=== PATIENT | female | born 1945 | race Caucasian/White ===

== ENCOUNTER 2018-04-25 14:15 | Emergency (ER) | payer OTHER ==
[~2018-04-25] VITALS: Ht 157.5 cm; Wt 46.7 kg
[~2018-04-25 14:15] MED LIST: ADVIL; ALBU90OI61 INH; ALEN70 PO; Duoneb 2.5-0.5 M3 ML INH; IBUP400 PO; LOVA40 PO; PRED10 PO; PROP60 PO; Percocet 5-3251 EACH PO; Prednisone20 MG PO; TOBRADEX ST EYE5 ML OP; Zithromax250 MG PO; Zofran Odt4 MG PO
[2018-04-25 16:30] LABS: Chloride (POC) 101 mmol/L (98-108); Creatinine (POC) 0.9 mg/dL (0.6-1.0); Glucose (ISTAT POC) 140 mg/dL (70-99); Hemoglobin (POC) 14.3 g/dL (12.0-16.0); Potassium (POC) 3.6 mmol/L (3.5-5.5); Sodium (POC) 145 mmol/L (135-148); Total CO2 (POC) 28 mmol/L (21-32)
== END 2018-04-25 17:48 | disposition home or self-care (01) ==
LOC: ER 14:15
PROVIDERS: Physician Assistant
DX: L03.213 Periorbital cellulitis (principal); J44.9 Chronic obstructive pulmonary disease, unspecified; F17.210 Nicotine dependence, cigarettes, uncomplicated; Z79.899 Other long term (current) drug therapy
CPT/HCPCS: 36415; 70481; 80047; 85014; 99283-25; Q9967

== ENCOUNTER 2018-05-07 15:56 | Inpatient (IN) | payer OTHER ==
[~2018-05-07] VITALS: Ht 157.5 cm; Wt 45.5 kg
[2018-05-07 16:48] LABS: BASOPHILS ABSOLUTE AUTO 0.07 K/mm3 (0.00-0.23); BASOPHILS PERCENT AUTO 1 % (0-2); EOSINOPHILS ABSOLUTE AUTO 0.25 K/mm3 (0.00-0.68); EOSINOPHILS PERCENT AUTO 3 % (0-6); Hematocrit 47.3 % (33.0-51.0); Hemoglobin 14.8 g/dL (11.5-16.0); IMMATURE GRAN ABSOLUTE AUTO 0.08 K/mm3 (0.00-0.10); IMMATURE GRAN PERCENT AUTO 1 % (0-1); LYMPHOCYTES ABSOLUTE AUTO 2.22 K/mm3 (0.84-5.20); LYMPHOCYTES PERCENT AUTO 24 % (21-46); MONOCYTES ABSOLUTE AUTO 0.88 K/mm3 (0.16-1.47); MONOCYTES PERCENT AUTO 10 % (4-13); Mean Corpuscular HGB Conc 31.3 g/dL (31.5-36.5); Mean Corpuscular Volume 89 fL (80-100); Mean Platelet Volume 9.7 fL (9.1-12.4); NEUTROPHILS ABSOLUTE AUTO 5.71 K/mm3 (1.96-9.15); NEUTROPHILS PERCENT AUTO 62 % (41-73); Platelet Count 214 K/mm3 (150-400); RDW Coefficient Variation 13.3 % (11.7-14.2); RDW Standard Deviation 43.5 fL (35.1-46.3); Red Blood Cell Count 5.29 M/mm3 (3.80-5.20); White Blood Cell Count 9.21 K/mm3 (4.00-11.30)
[2018-05-07 17:09] LABS: Alanine Aminotransfer (ALT/SGP 18 U/L (12-78); Albumin, Blood 3.2 g/dL (3.4-5.0); Albumin/Globulin Ratio 0.9 (0.8-1.8); Alk Phos 74 U/L (50-136); Anion Gap 6 mmol/L (6-16); Aspartate Aminotrans (AST/SGOT 16 U/L (12-37); Bilirubin, Total 0.3 mg/dL (0.1-1.0); Blood Urea Nitrogen 15 mg/dL (8-24); Bun/Creatinine Ratio 15.9 (12.0-20.0); CO2, Blood 28 mmol/L (21-32); Calcium, Blood 8.2 mg/dL (8.5-10.1); Chloride, Blood 106 mmol/L (98-108); Creatinine, Blood 0.95 mg/dL (0.40-1.00); Globulin, Blood 3.5 g/dL (2.2-4.0); Glomerular Filtration Rate >60 (60-); Glucose, Blood 133 mg/dL (70-99); Potassium, Blood 4.1 mmol/L (3.5-5.5); Sodium, Blood 140 mmol/L (136-145); Total Protein, Blood 6.7 g/dL (6.4-8.2)
[2018-05-07] MEDS ORDERED: Symbicort 16010.2 GM INH (22:53)
[2018-05-07] MEDS ORDERED: TIOT18 INH (22:54)
[2018-05-08 04:18] LABS: Hemoglobin 13.2 g/dL (11.5-16.0); Mean Corpuscular HGB Conc 30.7 g/dL (31.5-36.5); Mean Corpuscular Volume 91 fL (80-100); Mean Platelet Volume 9.6 fL (9.1-12.4); Platelet Count 182 K/mm3 (150-400); RDW Coefficient Variation 13.2 % (11.7-14.2); RDW Standard Deviation 44.4 fL (35.1-46.3); Red Blood Cell Count 4.72 M/mm3 (3.80-5.20); White Blood Cell Count 9.35 K/mm3 (4.00-11.30)
[2018-05-08 04:33] LABS: Bun/Creatinine Ratio 14.5 (12.0-20.0); Calcium, Blood 7.6 mg/dL (8.5-10.1); Creatinine, Blood 0.97 mg/dL (0.40-1.00); Potassium, Blood 4.2 mmol/L (3.5-5.5)
--- NOTE | 2018-05-08 06:08 | NUR ---
SHIFT SUMMARY: PATIENT ARRIVED TO ROOM PCU7 VIA GURNEY FROM ER. PATIENT ABLE TO AMBULATE WITH NO DIFFICULTY, ALERT AND ORIENTED AND COMPLIANT WITH CARE. ADMISSION AND ASSESSMENT COMPLETED, PATIENT ORIENTED TO CALL LIGHT, ROOM AND HOSPITAL POLICIES. PATIENT LEFT ARM IS POSITIONAL FOR BLOOD PRESSURES AND OFTEN READS APPROX 20 POINTS LOWER THAN RIGHT ARM. NO SOLU MEDROL HAS BEEN GIVEN PATIENT IS ALLERGIC TO STEROIDS AND UNSURE OF WHICH STEROID, MD IS AWARE AND HOPING FOR CLARIFICATION FROM PATIENTS FAMILY. ALL OTHER VSS, CALL LIGHT WITHIN REACH AND BED LOW AND LOCKED.
--- NOTE | 2018-05-08 13:09 | NUR ---
AM NOTE REFERRREL TO DR PALUMBO CALLED. PT AGREEABLE TO SEEING HIM. TALKED WITH DR PALUMBO ON THE PHONE. HE REQUESTED PEPECID, PREDNISONE AND BENADRYL TO BE GIVEN TO PT. CALLED Starla CUI FOR ORDERS. DR PALUMBO WAS HERE SHORTLY THEREAFTER. DR CUI ORDERED VANCOMYCIN. REQUESTED A POWER GLIDE BE PLACED PRIOR TO ADMINISTRATION. PT RECEIVED A POWER GLIDE TO EHR RIGHT UE. TOLERATED WELL. IVF FINISHED X1. ORDERED KVO FLUIDS PER PROTOCOL FOR ANTIBIOTIC ADMINISTRATION. PT CURRENTLY WATCHING FOOTBALL WITH HER NEIGHBOR. EYES LESS RED AND SWOLLEN. PT REPORTS LESS ITCHY WELL. UCAN REPLACED THE INSULATION IN HER CEILING AT THE BEGINNING OF THE MONTH ALONG WITH SOME WINDOW REPLACEMENT WELL. THE SWELLING STARTED SHORTLY THEREAFTER. CONTINUE POT.
--- NOTE | 2018-05-09 06:28 | NUR ---
SHIFT SUMMARY- PT HAS REMAINED AOX4 THROUGHOUT SHIFT. VSS. PLEASANT AND COOPERATIVE WITH CARE. PT CONTINUES TO HAVE SOME REDNESS AND SWELLING AROUND BILATERAL EYES, BUT HAS SIGNIFICANTLY DECREASED THROUGHOUT THIS SHIFT, REDNESS HAS ALMOST COMPLETELY DISSIPATED. SKIN HAS BECOME SOMEWHAT WRINKLY, DRY AND CRACKED AROUND EYES. PT REPORTS THAT THEY FEEL MUCH BETTER, BUT THAT THEY ARE ITCHY. PT EDUCATED ON HEALING PROCESS AND ADVISED NOT TO SCRATCH OR RUB EYES, BUT RATHER TO UTILIZE COOL WASH RAG AND GENTLY PAT AROUND EYE AREA TO HELP WITH ITCHINESS. NO OTHER CHANGES NOTED FROM INITIAL ASSESSMENT. WILL CONTINUE TO MONITOR AND REPORT TO ONCOMING RN. BED IN LOW POSITION, CALL LIGHT IN REACH. BED ALARM SET FOR SAFETY.
--- NOTE | 2018-05-09 10:31 | NUR ---
CITLALY TALKED WITH PT AND DR CUI. PT OK'D THIS NURSE CALLING CITLALY ABOUT HER ALLERGIC RECTION TO THE CONSTRUCTION WORK THAT CITLALY SPONSORED BEING DONE IN HER HOME ON April. MESSAGE LEFT AT [phone]. THIS NURSE TALKED WITH COMPUTER NUMERICAL CONTROL GRINDER TOO. TODAY IS A HOLIDAY. NOT SURE IF CITLALY OBSERVES THE HOLIDAY OR NOT. CONTINUE POT.
--- NOTE | 2018-05-09 12:51 | NUR ---
TRANSFER TO [facility] NOTOFOED OF ROOM ASSIGNMENT. WENT TO LET PT KNOW. SHE JUMPED OUT OF BED AND TRIED TO SLAP THIS NURSE WHILE SCREAMING "YOU HAVEN'T FIXED ME". RETREATED UNTIL SHE CALMED DOWN. WENT BACK IN AND TALKED WITH HER AGAIN ABOUT THE TRANSFER. PT THEN AGREEABLE TO THE MOVE. CALLED REPORT TO ALEXIS SANTIAGO. CONTINUE POT.
--- NOTE | 2018-05-09 14:12 | NUR ---
1230 RECEIVED REPORT FROM PAMELA OLSON. PT ARRIVED TO ROOM DURING LUNCH. CALL LITE IN REACH. BED IN LOW POSITION, MET PT AT 1400. BROUGHT HER BLANKET TO WARM. TURNED UP HEAT. PT PLEASANT. BROUGHT LEMONAIDE.
--- NOTE | 2018-05-09 16:43 | NUR ---
bp on left arm is lower than rt. 97/65 on left vs 124/[address] daugherty. she states use lower b/p on left. noted on pt board.
--- NOTE | 2018-05-09 18:14 | NUR ---
PT HAS BEEN QUITE PLEASANT SINCE ADMIT FROM PCU. NO C/O PAIN, HAS HAD DAUGHTER IN TO VISIT MUCH OF AFT. TURNED HEAT UP IN ROOM TO AID COMFORT. BLANKETS GIVEN. GAVE LEMONAIDE. STATES THIS HAS MADE HER AFT MUCH MORE PLEASANT. NO OTHER CONCERNS AT THIS TIME. BED IN LOW POSITION, CALL LITE IN REACH, CALLS APPROP. DID NOTE SHE ATE HALF OF BURGER FROM [facility].
--- NOTE | 2018-05-10 04:05 | NUR ---
SHIFT SUMMARY PT ORIGINALLY ADMITTED FOR PRESEPTAL CELLULITIS BUT CURRENTLY ATTEMPTING TO R/O ALLERGIC REACTION. FULL CODE. REGULAR DIET. ALERT, ORIENTED, PLEASENT, COOPERATIVE, AND INDEPENDENT WITH CARE. MEDS WHOLE WITH WATER. 20 G IV TO GASTON IS SL, AND 22 G R WRIST IS SL. SMOKE. L ARM FOR BPS DUE TO SIGNIFICANTLY LOWER READINGS IN THE R ARM, IS AWARE PER REPORT. THE PT PRESENTED TO THE ED WITH REDNESS AND SWELLING AROUND THE EYES THAT PERSISTED OVER SEVERAL DAY. PT PRESENTED TO THE ED PRIOR TO CURRENT VISIT FOR A SIMILAR COMPLAINT IN ONLY ONE EYE AND WAS DIAGNOSED WITH PRESEPTAL CELLULITIS AND DISCHARGED WITH ANTIBIOTICS FOR A 10 DAY COARSE. THE NOTED TO HAVE CONTINUED AND WORSENING SWELLING, ITCHING, INVOLVEMENT OF BOTH EYES, AND FAILURE OF OUTPATIENT TREATMENT. PT ADMITTED FOR COARSE OF IV ANTIBIOTICS. CONCEARN NOW IS FOR INFECTIOUS/CELLULITIS VERSUS ALLERGIC REACTIONS WITH LOW SUSPICION FOR INFECTION NOTED. THE PT HAS APPEARED TO SLEEP COMFORTABLY MOST OF THE NIGHT, EASILY AWAKENS FOR CARE. PT APPEARS TO BE SLEEPING COMFORTABLY AT THIS TIME WITH NO APPARENT SIGNS OF ACUTE DISTRESS. ABLE TO MAKE NEEDS KNOWN AND CALL LIGHT IN REACH.
--- NOTE | 2018-05-10 08:00 | NUR ---
PT PLEASANT COOP A/O STATES FEELS BETTER. LESS SWELLING IN FACE. H/R REG, NO MURMER NOTED. NO TELE. LUNGS CLEAR, DIM BASES. ON R/A. REWP EASY, UNLABORED. ON R.A. BT X4 LAST BM YEST. VOIDS PER BATHROOM. INDEPENDANT. OUT TO SMOKE. BED IN LOW POSITION, CALL LITE IN REACH, CALLS APPROP
--- NOTE | 2018-05-10 10:00 | NUR ---
PATIENT PERMISSION PATIENT GAVE PERMISSION TO STUDENT NURSE HEATH PACK ON 05-10-18 TO GIVE MEDICATIONS. HEATH PACK
--- NOTE | 2018-05-10 11:02 | NUR ---
900. DR CUI CALLED. REQUESTING MED RECORDS FROM DR PALUMBO. CALLED DR PALUMBO OFFICE. HE IS IN [place] OFFICE. REGULATORY LAW SPECIALIST NOT FINDING ANY RECORDS ON HER INFO AT [facility] WITH [facility]. REQUESTED SHE CALL HIM AND TRY OBTAIN RECORD FROMTHIS VISIT. GAVE OUR FAX AND PHONE. 1100 NO RECORDS AT THIS TIME. CALLED MEDICAL RECORDS. NO RECORDS FOR PT OR FROM DR PALUMBO THERE.
[2018-05-10] MEDS ORDERED: ALBU3IS INH (12:32)
[2018-05-10] MEDS ORDERED: FAMO20 PO (12:35)
[2018-05-10] MEDS ORDERED: Artificial Tea1 EACH BOTHEYES (12:38)
[2018-05-10] MEDS ORDERED: PRED20 PO (12:38)
[2018-05-10] MEDS ORDERED: Loratadine10 MG PO (12:39)
--- NOTE | 2018-05-10 14:17 | NUR ---
DISDCHARGE REVIEWED WITH PT AND SON. PT EXCITED TO GO HOME. 2 IV'S REMOVED INTACT. NO TELE. DISCHARGE INFORMATION REVIEWED. PT AND SON VERBALIZED UNDERSTANDING OF MEDS AND INSTRUCTIONS. AGREE TO CALL D[facility] TO [facility] APPOINTMENTS. PT WHEELED TO DOOR BY STUDENT RN AT 0518
== END 2018-05-10 14:15 | disposition home or self-care (01) | DRG 125 ==
LOC: ER 15:56 → PCU 20:28 → MEDS 21:30 → PCU 21:46 → MEDS 05-09 13:23
PROVIDERS: Nurse Practitioner Acute Care; Physician Assistant; ADMIT Internal Medicine
DX: H05.223 Edema of bilateral orbit (principal); T78.49XA Other allergy, initial encounter; X58.XXXA Exposure to other specified factors, initial encounter; J44.9 Chronic obstructive pulmonary disease, unspecified; Z23 Encounter for immunization; M81.0 Age-related osteoporosis without current pathological fracture; E78.5 Hyperlipidemia, unspecified; G25.0 Essential tremor; F17.210 Nicotine dependence, cigarettes, uncomplicated; Z79.899 Other long term (current) drug therapy; Z88.8 Allergy status to other drugs, medicaments and biological substances
CPT/HCPCS: 36415; 70487; 80048; 80053; 83605; 85025; 85027; 87040; 90686; 94640; 94760; 96361; 96365; 96367; 99284-25; J0295; J3370; J7030; J7040; J7050; Q0163; Q9967